=== PATIENT | male | born 1965 | race Caucasian/White ===

== ENCOUNTER 2023-06-09 11:46 | Emergency (ER) | payer OTHER, SELFPAY ==
[2023-06-09 12:00] VITALS: BP 108/78; PULSE 60; RESP 18; TEMP 36.8; O2SAT 98
--- NOTE | 2023-06-09 12:52 | ED.GENADULT ---
HPI - General Adult General Chief complaint: Wound/Laceration Stated complaint: Lac on left hand Source: patient Mode of arrival: ambulatory Limitations: no limitations History of Present Illness HPI narrative: Patient presents for evaluation of laceration to the palmar aspect of the left hand that occurred just prior to arrival. He was working on a dish up person blade and cut his hand in the process. He denies significant pain. No loss of ROM. No paresthesias. He is right hand dominant. He is diabetic but has controlled this with lifestyle modifications. In fact, he has successfully lost eighty pounds. His a1c is consistently under 7. Related Data Home Medications Medication Instructions Recorded Confirmed diclofenac sodium 75 mg 75 mg PO BID 06/09/23 06/09/23 tablet,delayed release escitalopram oxalate 20 mg tablet 20 mg PO DAILY 06/09/23 06/09/23 lisinopril 40 mg tablet 40 mg PO DAILY 06/09/23 06/09/23 risankizumab-rzaa 150 mg/mL See Rx Instructions .Route .COMPLEX 06/09/23 06/09/23 subcutaneous pen injector (Skyrizi) Allergies Allergy/AdvReac Type Severity Reaction Status Date / Time prochlorperazine AdvReac Muscle Verified 06/09/23 12:16 [From Compazine] Spasms sulfamethoxazole AdvReac Migraine Verified 06/09/23 12:15 [From Septra] trimethoprim [From Septra] AdvReac Migraine Verified 06/09/23 12:15 Review of Systems Review of Systems: CONSTITUTIONAL: Denies fever, chills, or sweats. EYES: Denies visual changes, redness, or discharge. ENT: Denies rhinorrhea, congestion, sore throat, or otalgia. CARDIOVASCULAR: Denies chest pain, palpitations, or edema. RESPIRATORY: Denies cough or dyspnea. GASTROINTESTINAL: Denies abdominal pain, nausea, vomiting, or diarrhea. GENITOURINARY: Denies dysuria or hematuria. SKIN: Reports laceration to left hand. Denies rash or itching. MUSCULOSKELETAL: Denies back pain, joint pain, or myalgia. NEUROLOGIC: Denies headache, numbness, dizziness, or weakness. PSYCHIATRIC: Denies anxiety or depression. [facility] Past Medical History Medical History Diabetes Psoriasis Surgical History Surgical History No pertinent past surgical history Family History Family History Mother Family history non-contributory Social History Social History Smoking status: Current some day smoker Tobacco type: cigarettes Alcohol intake: former Substance use: never Gender identity (if verbalized by the patient): Male Sexual Orientation (if Verbalized by the Patient): Straight or Heterosexual Spiritual care concerns: No Exam Narrative: GENERAL: Well-appearing, well-nourished, and in no acute distress. HEAD: Normocephalic, atraumatic. EYES: PERRLA and EOMI. ENT: Nares clear, no rhinorrhea or epistaxis. Mucous membranes moist. Oropharynx without tonsillar hypertrophy exudate or other lesions. Bilateral TMs pearly malcolm nonbulging NECK: Supple. No adenopathy or masses. No carotid bruits or JVD CHEST: Clear to auscultation. No respiratory distress. No wheezes rales or rhonchi HEART: Regular rate and rhythm. No murmur heard. Normal peripheral pulses. ABDOMEN: Soft, nontender, nondistended, normal active bowel sounds. EXTREMITIES: Normal range of motion. No edema. SKIN: Warm, dry, no rash. Approximately 2.5 cm linear laceration to the palmar aspect of the left hand with small amount of sanguinous drainage. Hands are soiled in dirt. NEURO: No focal deficits. Alert and oriented x3. PSYCH: Normal mood and affect. Course Course Emergency Course: This is a 57-year-old male who presented for evaluation of a laceration to the palmar aspect of the left hand. Hands were soiled in dirt. Hand was cleaned thorough with betadine. W
== END 2023-06-09 13:40 | disposition home or self-care (01) ==
PROVIDERS: Emergency Provider Nurse Practitioner; PCP Internal Medicine
DX: S61.412A Laceration without foreign body of left hand, initial encounter (principal); W28.XXXA Contact with powered lawn mower, initial encounter; F17.210 Nicotine dependence, cigarettes, uncomplicated; E11.9 Type 2 diabetes mellitus without complications; L40.9 Psoriasis, unspecified
CPT/HCPCS: 12001; 99213; G0463